=== PATIENT | male | born 1955 | race Caucasian/White ===

== ENCOUNTER → 2019-12-06 | Outpatient (CLI) | payer MEDICARE, OTHER ==
[~2019-12-06] MED LIST: BRILINTA90 MG PO; CLEOCIN HCL300 MG PO; LOPRESSOR 225 MG/TAB PO; NITROSTAT0.4 MG/TAB SL; ROXICODONE 55 MG/TAB PO; ULTRAM 50MG TAB50 MG PO
== END ==
LOC: COL.RAD 08:09
DX: Z01.812 Encounter for preprocedural laboratory examination (principal); M54.12 Radiculopathy, cervical region; G95.9 Disease of spinal cord, unspecified; M48.02 Spinal stenosis, cervical region; G99.2 Myelopathy in diseases classified elsewhere; Z98.1 Arthrodesis status
CPT/HCPCS: A9585

== ENCOUNTER 2020-10-18 13:17 | Outpatient (CLI) | payer MEDICARE, OTHER ==
[~2020-10-18] VITALS: Ht 154.9 cm; Wt 56.5 kg
[~2020-10-18 13:17] MED LIST changes: +ANTIVERT 25MG25 MG PO; +FLONASEALLERGY NS; +LIPITOR 40MG TA40 MG PO; +RANEXA 500MG T500 MG PO
[2020-10-18 13:38] VITALS: BP 129/75; PULSE 65
[2020-10-18 14:20] VITALS: BP 116/63; PULSE 63
[2020-10-18 14:50] VITALS: BP 113/80; PULSE 56
--- NOTE | 2020-10-18 16:05 | NUR ---
Discharge instructions given by Edilma Daigel.Pt escorted out by edilma Gallegos.
== END 2020-10-18 16:07 | disposition home or self-care (01) ==
LOC: COL.RAD 13:17
DX: M50.323 Other cervical disc degeneration at C6-C7 level (principal); M48.02 Spinal stenosis, cervical region; M43.22 Fusion of spine, cervical region; Z96.89 Presence of other specified functional implants
CPT/HCPCS: Q9967

== ENCOUNTER → 2021-06-19 | Outpatient (CLI) | payer MEDICARE, OTHER | LOC: COL.RAD 07:12 | DX: M19.012 Primary osteoarthritis, left shoulder (principal) ==